=== PATIENT | male | born 1970 | race American Indian/Alaskan Native ===

== ENCOUNTER 2017-11-09 12:35 | Emergency (ER) | payer SELFPAY ==
[2017-11-09 13:41] VITALS: BP 136/80
--- NOTE | 2017-11-09 17:05 | Emergency Department Report ---
ED Rash HPI - HPI Chief Complaint: Skin Rash Stated Complaint: LEFT FOOT PAIN Time Seen by Provider: 11/09/17 16:59 Duration: 2 weeks Location: Lower Extremities (rash on left foot) Rash Symptoms: Yes Itching, Yes Blistering, No Tongue/Oral Swelling, No Breathing Difficulties, No Fever Other History: 47-year-old -[place] male presents to the emergency room for complaint of a rash on his left foot. Patient reports that he had that rash for about a week or so. He reports that it was very itchy and he uses over -the-counter Tinactin foot spray. He reports that it has helped some. He denies any fever or chills. He does report that the foot itself is mildly swollen. Patient denies pain. ED Review of Systems ROS: Stated complaint: LEFT FOOT PAIN Other details as noted in HPI Comment: All other systems reviewed and negative Constitutional: denies: fever Skin: rash (on left foot between the toes), pruritus (left foot between the toes ) ED Past Medical Hx - Past Medical History Previous Medical History?: No - Surgical History Past Surgical History?: Yes Additional Surgical History: hernia repair - Social History Smoking Status: Current Every Day Smoker Substance Use Type: Alcohol - Medications Home Medications: Home Medications Medication Instructions Recorded Confirmed Last Taken Type HYDROcodone/APAP 5-325 [[place] 1 each PO Q6HR PRN #10 tablet 06/09/13 Unknown Rx 5/325 mg] Ibuprofen [Motrin] 600 mg PO Q8H PRN #30 tablet 06/09/13 Unknown Rx Sulfamethoxazole/Trimethoprim 1 each PO BID #20 tablet 06/09/13 Unknown Rx [Bactrim Ds] Cyclobenzaprine HCl [Flexeril 5mg] 5 mg PO TID #20 tablet 08/02/14 Unknown Rx Ibuprofen [Motrin] 800 mg PO Q8H #30 tablet 08/02/14 Unknown Rx traMADol [Ultram 50 MG tab] 50 mg PO Q6HR PRN #20 tablet 08/02/14 Unknown Rx Clotrimazole/Betamethasone Dip 1 applicatio TP BID #30 cream..g. 11/09/17 Unknown Rx [Lotrisone Cream] Rash Exam - Exam General: Vital signs noted. No distress. Alert and acting appropriately. HEENT: No Periorbital Edema, No Conjuctival Injection, No Chemosis, No Perioral Edema, No Tongue Edema, No Uvular Edema, No Compromised Airway, No Drooling Lungs: Yes Good Air Exchange (Normal Breath Sounds), No Wheezes, No Ronchi, No Stridor, No Cough, No Labored Respirations, No Retractions, No Use of Accessory Muscles, No Other Abnormal Lung Sounds Skin: Yes Maculopapular Rash (that is scaly hyper pigmented between the toes), Yes Erythema Other: Positive: Abdomen Normal, Neurologic Normal, Musculoskeletal Normal ED Course Vital Signs 11/09/17 13:37 Temperature 99.4 F Pulse Rate 66 Respiratory 16 Rate Blood Pressure 136/80 O2 Sat by Pulse 97 Oximetry ED Medical Decision Making - Medical Decision Making Patient has been evaluated by this provider in fast track. Discussed patient that I will place him on Lotrisone antifungal cream to place between his toes. Also discussed the patient that he needs to change his socks daily highly recommend getting a a new para shoes to work again. Patient not able to recommend placing his shoes outside with the tongues open in the foot bed taken out to allow the UV raise to hit. Discussed the patient to follow up with [facility] as they are his primary care provider and they will be able to refer him to a hand blocker versus comparator operator. Patient verbalize understanding. Critical care attestation.: If time is entered above; I have spent that time in minutes in the direct care of this critically ill patient, excluding procedure time. ED Disposition Clinical Impression: Tinea pedis, left Disposition: [id number] TO HOME OR SELFCARE Is pt being admited?: No Does the pt Need Aspirin: No Condition: Stable Instructions: Tinea Pedis (ED) Additional Instructions: Please use medication as prescribed. Please change socks daily recommended a new pair of shoes. If you rash persist or gets worse please follow up with the hand blocker or dermatology. Prescriptions: Clotrimazole/Betamethasone Dip [Lotrisone Cream] 1 applicatio TP BID #30 cream..g. Referrals: PRIMARY CARE, [Primary Care Provider] - 3-5 Days [facility] [Provider Group] - 3-5 Days [facility] [Provider Group] - 3-5 Days Forms: Work/School Release Form(ED)
== END 2017-11-09 17:42 | disposition home or self-care (01) ==
LOC: ED 12:35
DX: B35.3 Tinea pedis (principal); F17.200 Nicotine dependence, unspecified, uncomplicated; Z79.899 Other long term (current) drug therapy
CPT/HCPCS: 99282